=== PATIENT | male | born 1940 | race Caucasian/White ===

== ENCOUNTER 2018-04-29 01:36 | Outpatient (RCR) | payer OTHER, SELFPAY ==
[2018-04-29] VITALS (7 sets, daily range): BP systolic 141–155; BP diastolic 56–75; PULSE 60–77; RESP 18; TEMP 36.5–36.7; O2SAT 95–98
[2018-04-29] MEDS: diphenhydrAMINE 25 MG CAP PO (10:18)
[2018-04-29] MEDS: Acetaminophen 325 MG TAB 650 MG PO (10:18)
[2018-04-29] MEDS: methylPREDNISolone SUCC 125 MG VIAL 100 MG IVP (10:18)
[2018-04-29] MEDS: Normal Saline Flush 10 ML SYR IVP (10:18)
== END 2018-05-11 23:59 | disposition home or self-care (01) ==
LOC: INF 01:36
PROVIDERS: PCP Family Medicine; Visit Provider Family Medicine
DX: M05.79 Rheumatoid arthritis with rheumatoid factor of multiple sites without organ or systems involvement (principal); M05.10 Rheumatoid lung disease with rheumatoid arthritis of unspecified site
CPT/HCPCS: 96365; 96366; J2930; J9310

== ENCOUNTER 2018-05-13 02:02 | Outpatient (RCR) | payer OTHER, SELFPAY ==
[2018-05-13 10:18] VITALS: BP 122/68; PULSE 75; RESP 18; TEMP 36.6; O2SAT 98
[2018-05-13] MEDS: methylPREDNISolone SUCC 125 MG VIAL 100 MG IVP (10:27)
[2018-05-13] MEDS: diphenhydrAMINE 25 MG CAP PO (10:27)
[2018-05-13] MEDS: Acetaminophen 325 MG TAB 650 MG PO (10:27)
[2018-05-13 10:55] VITALS: BP 140/72; PULSE 67; RESP 16; TEMP 36.7; O2SAT 95
[2018-05-13 11:22] VITALS: BP 144/68; PULSE 66; RESP 18; TEMP 36.7; O2SAT 95
[2018-05-13 12:00] VITALS: BP 140/72; PULSE 73; RESP 18; TEMP 37; O2SAT 95
[2018-05-13 12:30] VITALS: BP 145/72; PULSE 75; RESP 18; TEMP 36.7; O2SAT 98
== END 2018-06-11 23:59 | disposition home or self-care (01) ==
LOC: INF 02:02
PROVIDERS: PCP Family Medicine; Visit Provider Family Medicine
DX: M05.79 Rheumatoid arthritis with rheumatoid factor of multiple sites without organ or systems involvement (principal); M05.10 Rheumatoid lung disease with rheumatoid arthritis of unspecified site
CPT/HCPCS: 96365; 96366; 96374; J2930; J9310

== ENCOUNTER 2018-12-21 18:02 | Outpatient (REF) | payer OTHER, SELFPAY ==
[2018-12-21 19:38] LABS: Abs Immature Grans 0.01 k/cumm (0.0-0.09); Absolute Basophil Count 0.04 k/cumm (0.0-0.2); Absolute Eosinophil Count 0.12 k/cumm (0.0-0.7); Absolute Lymphocyte Count 0.63 k/cumm (1.2-3.4); Absolute Monocyte Count 0.06 k/cumm (0.11-0.7); Absolute Neutrophil Count 11.22 k/cumm (1.2-6.7); Basophils % 0.3; HGB 13.5 g/dL (13.5-17.5); Immature Grans % 0.1; Lymphocytes % 5.2; Mean Corp. HGB Concentration 32.9 g/dL (32.0-36.0); Mean Corpuscular Hemoglobin 28.9 pg (27.0-33.0); Mean Corpuscular Volume 87.8 fL (80-95); Mean Platelet Volume 10.1 fL (8.0-11.0); Monocytes % 0.5; Neutrophils % 92.9; Platelet Count 377 x1000/uL (130-400); RBC 4.67 m/cumm (4.50-6.00); RBC Distribution Width 13.9 % (11.8-14.1); White Blood Cell Count 12.08 k/cumm (4.4-10.8)
[2018-12-21 19:46] LABS: ALT 27 U/L (12-78); AST 28 U/L (15-37); Albumin 3.1 g/dL (3.4-5.0); Alkaline Phosphatase 92 U/L (46-116); Anion Gap 9.3 mmol/L (3-11); BUN 19 mg/dL (7-18); Bilirubin, Total 0.3 mg/dL (0.2-1.0); CO2 26.7 mmol/L (21.0-32.0); CREATININE 1.16 mg/dL (0.70-1.30); Calcium 8.5 mg/dL (8.5-10.1); Chloride 104 mmol/L (98-107); Glucose 122 mg/dL (70-100); Potassium 4.8 mmol/L (3.5-5.1); Sodium 140 mmol/L (136-145); Total Protein 7.1 g/dL (6.4-8.2)
== END 2018-12-21 18:22 ==
LOC: LBN 18:02
PROVIDERS: PCP Family Medicine
DX: J15.1 Pneumonia due to Pseudomonas (principal); Z79.2 Long term (current) use of antibiotics; R91.8 Other nonspecific abnormal finding of lung field; C43.9 Malignant melanoma of skin, unspecified
CPT/HCPCS: 80053; 85025

== ENCOUNTER 2019-01-13 01:10 | Outpatient (RCR) | payer OTHER, SELFPAY ==
[2019-01-13] MEDS: Normal Saline Flush 10 ML SYR IVP (13:15)
== END 2019-02-08 23:59 | disposition home or self-care (01) ==
LOC: INF 01:10
PROVIDERS: PCP Family Medicine; Visit Provider Internal Medicine
DX: M81.0 Age-related osteoporosis without current pathological fracture (principal)
CPT/HCPCS: 96365; J3489

== ENCOUNTER 2019-02-16 02:00 | Outpatient (RCR) | payer OTHER, SELFPAY ==
[2019-02-16] VITALS (9 sets, daily range): BP systolic 149–189; BP diastolic 75–101; PULSE 65–77; RESP 17–20; TEMP 36.6–37; O2SAT 95–97
[2019-02-16] MEDS: methylPREDNISolone SUCC 125 MG VIAL 100 MG IVP (11:05)
[2019-02-16] MEDS: diphenhydrAMINE 50 MG/ML VIAL IVP (11:06)
[2019-02-16] MEDS: Normal Saline Flush 10 ML SYR IVP (11:06)
[2019-02-16 11:45] LABS: ALT 24 U/L (16-63); AST 30 U/L (15-37); Albumin 3.1 g/dL (3.4-5.0); Alkaline Phosphatase 79 U/L (46-116); Anion Gap 8.3 mmol/L (3-11); BUN 23 mg/dL (7-18); Bilirubin, Total 0.5 mg/dL (0.2-1.0); CO2 25.7 mmol/L (21.0-32.0); CREATININE 0.96 mg/dL (0.70-1.30); Calcium 8.2 mg/dL (8.5-10.1); Chloride 108 mmol/L (98-107); Glucose 94 mg/dL (70-100); Potassium 4.5 mmol/L (3.5-5.1); Sodium 142 mmol/L (136-145); Total Protein 6.7 g/dL (6.4-8.2)
== END 2019-03-11 23:59 | disposition home or self-care (01) ==
LOC: INF 02:00
PROVIDERS: Internal Medicine Rheumatology; PCP Family Medicine; Visit Provider Family Medicine
DX: M05.79 Rheumatoid arthritis with rheumatoid factor of multiple sites without organ or systems involvement (principal); M05.10 Rheumatoid lung disease with rheumatoid arthritis of unspecified site
CPT/HCPCS: 36415; 80053; 96365; 96366; J1200; J2930; J9310

== ENCOUNTER 2020-03-09 01:44 | Outpatient (RCR) | payer OTHER, SELFPAY ==
[2020-03-09] MEDS: Normal Saline Flush 10 ML SYR IVP (14:04)
== END 2020-03-11 23:59 | disposition home or self-care (01) ==
LOC: INF 01:44
PROVIDERS: PCP Family Medicine; Visit Provider Nurse Practitioner Family
DX: M06.9 Rheumatoid arthritis, unspecified (principal)
CPT/HCPCS: 96365; J3489

== ENCOUNTER 2021-03-09 00:58 | Outpatient (RCR) | payer MEDICARE, SELFPAY ==
[2021-03-09] MEDS: Normal Saline Flush 10 ML SYR IVP (11:10)
== END 2021-03-11 23:59 | disposition home or self-care (01) ==
LOC: INF 00:58
PROVIDERS: PCP Family Medicine; Visit Provider Nurse Practitioner Acute Care
DX: M81.0 Age-related osteoporosis without current pathological fracture (principal)
CPT/HCPCS: 96365; J3489